=== PATIENT | male | born 2005 | race Caucasian/White ===

== ENCOUNTER 2024-08-09 18:36 | Emergency (ER) | payer OTHER ==
[~2024-08-09] VITALS: Ht 188 cm; Wt 90.2 kg
[2024-08-09 18:47] VITALS: BP 107/69
[2024-08-09] MEDS ORDERED: CEPH-585 PO (19:39)
[2024-08-09] MEDS: TETanus/Pertussis (Acell)/Diphther VAC/PF (Tdap-Adult) 0.5ml syringe IMVAC ONE (19:52)
[2024-08-09 20:31] VITALS: PULSE 68; RESP 14; TEMP 97.9; O2SAT 98
== END 2024-08-09 20:36 | disposition home or self-care (01) ==
LOC: ER 18:37
DX: S81.011A Laceration without foreign body, right knee, initial encounter (principal); W19.XXXA Unspecified fall, initial encounter; Y93.89 Activity, other specified; Y92.89 Other specified places as the place of occurrence of the external cause; Y99.8 Other external cause status
CPT/HCPCS: 12001; 73564; 99283; A6223; A6449

== ENCOUNTER 2024-08-19 18:07 | Emergency (ER) | payer OTHER ==
[~2024-08-19] VITALS: Ht 188 cm; Wt 88.6 kg
[2024-08-19 18:58] VITALS: BP 124/64; PULSE 70; RESP 14; TEMP 97.9; O2SAT 99
== END 2024-08-19 18:59 | disposition home or self-care (01) ==
LOC: ER 18:08
DX: S81.011D Laceration without foreign body, right knee, subsequent encounter (principal); Z48.02 Encounter for removal of sutures; X58.XXXD Exposure to other specified factors, subsequent encounter
CPT/HCPCS: 99282